=== PATIENT | female | born 1995 | race Caucasian/White ===

== ENCOUNTER 2025-04-22 17:34 | Emergency (ER) | payer MEDICAID, SELFPAY ==
[2025-04-22 17:39] VITALS: BP 147/81; PULSE 89; RESP 18; TEMP 36.8; O2SAT 98
--- NOTE | 2025-04-22 17:44 | USR_ITS ---
PROCEDURE INFORMATION: Exam: US Duplex Artery or Vein of the Abdominal and/or Reproductive Organs, Limited Ovaries Exam date and time: 04/22/2025 6:01 PM Age: 29 years old Clinical indication: Lmp or gestational age (in weeks): 03/06/2025; Other: Bleeding and cramping; Prior surgery; Surgery date: 6+ months; Surgery type: Tubal removed in 2023. PT unsure what side; Additional info: Vaginal bleeding, early . Pain. TECHNIQUE: Imaging protocol: Real-time duplex ultrasound scan of the arterial or venous flow with chavira scale, color Doppler flow and spectral waveform analysis with image documentation. Limited duplex exam focused on the ovaries. Duplex exam was performed to evaluate for torsion and other vascular conditions. COMPARISON: No relevant prior studies available. FINDINGS: Right ovary/adnexa: Normal arterial or venous Doppler waveforms in the ovary. No ovarian torsion. Left ovary/adnexa: Normal arterial or venous Doppler waveforms in the ovary. No ovarian torsion. PROCEDURE INFORMATION: Exam: US First Trimester, Transabdominal and US , Transvaginal Exam date and time: 04/22/2025 6:01 PM Age: 29 years old Clinical indication: Lmp or gestational age (in weeks): 03/06/2025; Other: Bleeding and cramping; Prior surgery; Surgery date: 6+ months; Surgery type: Tubal removed in 2023. PT unsure what side; Additional info: Vaginal bleeding, early . Pain. LABS AND CLINICAL REPORTS: Last menstrual period start date: 03/06/2025 TECHNIQUE: Imaging protocol: Real-time transabdominal obstetrical ultrasound of the maternal pelvis and a first trimester , less than 14 weeks 0 days, with image documentation. Transvaginal imaging was used for better evaluation of the fetus, adnexa, and/or cervix. COMPARISON: No relevant prior studies available. FINDINGS: GESTATION: Gestation: No intrauterine identified. Embryo/ cardiac activity (BPM): No intrauterine . Extra-embryonic membranes/Placenta: No intrauterine . Amniotic/Chorionic fluid: No intrauterine . BIOMETRY: Gestational age (AUA): No intrauterine . MATERNAL: Uterus: The uterus is normal and measures 4.2 x 4.4 x 8.5 cm. No uterine masses are identified. The endometrium is within normal thickness measuring 1 cm. Cervix: Unremarkable. Endocervical canal is closed. Right ovary/adnexa: The right ovary is normal and measures 1.8 x 1.5 x 2.1 cm. Normal arterial and venous waveforms are present. No adnexal masses are identified.. Left ovary/adnexa: Hypervascular structure in the left adnexa with small central area of decreased echogenicity likely represents a left ovary with a corpus luteal cyst though appears mildly enlarged measuring 4.5 x 2.0 x 4.2 cm. Normal arterial and venous waveforms are present. No adnexal masses are seen. Intraperitoneal space: No pelvic free fluid is identified. US/US OB <=14 wk fetus w transvag IMPRESSION: Normal duplex of the ovaries. No evidence of ovarian torsion. IMPRESSION: 1. No intrauterine . Differential diagnosis includes early intrauterine , early ectopic , and missed . 2. 4.5 cm hypervascular structure in the left adnexa with central decreased echogenicity likely represents left ovary with corpus luteal cyst. An ectopic could theoretically have this appearance. Recommend correlation with beta HCG, close clinical follow-up, and follow-up pelvic ultrasound if indicated.
--- NOTE | 2025-04-22 18:17 | W.ED.PREGNAN ---
HPI - General: Chief complaint: OB/Uterine Contractions Stated complaint: 7 Weeks Preg Cramping brown/red discharge Time Seen by Provider: 04/22/25 17:43 History of Present Illness: 29-year-old female who reports a history of a previous tubal with a tubal removal at the time who presents emergency room approximately 7 weeks with concern for bleeding. She has had some mild cramping and some pain in her right back. No nausea or vomiting. She is passed no tissues. Related Data Previous Rx's ?Medication ?Instructions ?Recorded cephalexin 500 mg tablet 500 mg PO TID 7 days #21 tabs 04/22/25 Allergies Allergy/AdvReac Type Severity Reaction Status Date / Time No Known Allergies Allergy Verified 04/22/25 17:43 Review of Systems Narrative: Constitutional symptoms: Negative except as documented in HPI. Skin symptoms: Negative except as documented in HPI. Eye symptoms: Negative except as documented in HPI. ENMT symptoms: Negative except as documented in HPI. Respiratory symptoms: Negative except as documented in HPI. Cardiovascular symptoms: Negative except as documented in HPI. Gastrointestinal symptoms: Negative except as documented in HPI. Genitourinary symptoms: Negative except as documented in HPI. Musculoskeletal symptoms: Negative except as documented in HPI. Neurologic symptoms: Negative except as documented in HPI. Psychiatric symptoms: Negative except as documented in HPI. Endocrine symptoms: Negative except as documented in HPI. Physical Exam Narrative: EXAM NARRATIVE: General: Alert, no acute distress. Skin: Warm, dry. Head: Normocephalic, atraumatic. Neck: Supple, trachea midline. Eye: Extraocular movements are intact. Ears, nose, mouth and throat: mucosa moist. Cardiovascular: Regular, Normal peripheral perfusion. Respiratory: Lungs are clear to auscultation, respirations are non-labored, breath sounds are equal, Symmetrical chest wall expansion. Gastrointestinal: Soft, Nontender, Non distended Musculoskeletal: Normal ROM, no deformity. Neurological: Alert and oriented, No focal neurological deficit observed. Psychiatric: Cooperative, appropriate mood & affect. Course Vital Signs: Vital signs: Vital Signs Temperature 98.3 F 04/22/25 17:39 Pulse Rate 89 04/22/25 17:39 Respiratory Rate 18 04/22/25 17:39 Blood Pressure 147/81 04/22/25 17:39 Pulse Oximetry 98 04/22/25 17:39 Oxygen Delivery Me thod Room Air 04/22/25 17:39 MDM - OB/Uterine Contractions Medical Decision Making Medical decision making: Patient's reason for coming to the emergency room: Vaginal bleeding in early Social determinants: Patient is unemployed. I reviewed the patient's medical record. Patient has had no previous visits to this facility. No records. I reviewed the patient's current home meds Currently takes no medications. Alternate historians: None Differential diagnosis including but not limited to and based on the above HPI, review of systems and physical exam: for patient in early with vaginal bleeding and abdominal pain: Spontaneous , threatened . Urinary tract infection. ectopic . Orders placed to evaluate differential diagnosis based on the above differential, HPI and physical exam Lab Review: Laboratory results were reviewed and interpreted by myself the emergency room physician. No leukocytosis. No anemia. No renal failure. Patient's blood type is O+. No RhoGAM needed. Her quant is positive at 7000. Urinalysis may have an early UTI so antibiotics called in. Ultrasound OB: No intrauterine . Hypervascular structure in the left adnexa. Patient does not have any symptoms there. This was reviewed and interpreted by myself the emergency room physician. I also reviewed the radiology report. Consultation: I spoke with Dr. Titus who is on-call for obstetrics. She feels with a quant of 7000 and she was having an ectopic this would be very symptomatic at this point. No evidence on ultrasound and her exam is fairly benign. She hurts more in her back which may be related to the UTI. She recommends follow-up hCG in the near future. Assessment of risk: - Level of risk moderate - Was hospitalization considered? Yes. Patient does not appear to have an ectopic and so will not require admission Reexamination: Patient remained stable. No increased work of breathing. No altered mental status. No focal motor deficits. Assessment and plan: Miscarriage - Discharged home - Discussed plan with patient. Answered any questions. - Evaluation and treatment of this problem were appropriate in the emergency setting. Lab Data 04/22/25 19:02 04/22/25 19:02 Radiology Impressions Obstetrics Ultrasound 04/22/25 17:44 IMPRESSION: Normal duplex of the ovaries. No evidence of ovarian torsion. IMPRESSION: 1. No intrauterine . Differential diagnosis includes early intrauterine , early ectopic , and missed . 2. 4.5 cm hypervascular structure in the left adnexa with central decreased echogenicity likely represents left ovary with corpus luteal cyst. An ectopic could theoretically have this appearance. Recommend correlation with beta HCG, close clinical follow-up, and follow-up pelvic ultrasound if indicated. Laboratory Results WBC 7.38 10^3/uL (3.29-11.43) 04/22/25 19: RBC 4.70 10^6/uL (3.85-5.65) 04/22/25 19: Hgb 14.30 g/dL (11.27-16.99) 04/22/25: Hct 43.4 % (36-47) 04/22/25: MCV 92.3 fl (85-98) 04/22/25 19: MCH 30.4 pg (27-33) 04/22/25: MCHC 32.9 g/dL (30-55) 04/22/25 19: RDW 12.8 % (12.1-15.1) 04/22/25 19: Plt Count 294 10^3/cmm (157-399) 04/22/25 19: MPV 10.5 fL (7.4-10.4) H 04/22/25 19: Neut % (Auto) 61.1 % 04/22/25: Lymph % (Auto) 31.2 % 04/22/25 19: [place] % (Auto) 7.2 % 04/22/25: Eos % (Auto) 0.1 % 04/22/25: Baso % (Auto) 0.1 % 04/22/25:02 Neut # (Auto) 4.51 10^3/uL (1.8-7.7) 04/22/25: Lymph # (Auto) 2.3 10^3/uL (0.8-4.8) 04/22/25 19:02 [place] # (Auto) 0.5 10^3/uL (0.2-0.9) 04/22/25 19:02 Eos # (Auto) 0.0 10^3/uL (0.0-0.8) 04/22/25 19:02 Baso # (Auto) 0.0 10^3/uL (0.0-0.1) 04/22/25 19:02 Nucleated RBC % (auto) 0 % 04/22/25 19:02 Nucleated RBCs # 0.0 /100WBC 04/22/25 19:02 Sodium 141 mmol/L (136-145) 04/22/25 19:02 Potassium 3.5 mmol/L (3.5-5.1) 04/22/25 19:02 Chloride 104 mmol/L (98-107) 04/22/25 19:02 Carbon Dioxide 24 mmol/L (22-29) 04/22/25 19:02 Anion Gap 16.5 (5-19) 04/22/25 19:02 BUN 10 mg/dL (6-20) 04/22/25 19:02 Creatinine 0.7 mg/dL (0.5-0.9) 04/22/25 19:02 GFR Calculation 98.9 mL/min (90-130) 04/22/25 19:02 Glucose 100 mg/dL (65-115) 04/22/25 19:02 Calculated Osmolality 291 mOsm/kg (285-295) 04/22/25 19:02 Calcium 9.8 mg/dL (8.5-10.5) 04/22/25 19:02 Total Bilirubin 0.5 mg/dL (0.15-1.2) 04/22/25 19:02 AST 16 U/L (0-32) 04/22/25 19:02 ALT 11 U/L (0-33) 04/22/25 19:02 Alkaline Phosphatase 90 U/L (35-105) 04/22/25 19:02 Total Protein 7.8 g/dL (6.6-8.7) 04/22/25 19: Albumin 4.4 g/dL (3.5-5.2) 04/22/25 19:02 Globulin 3.4 g/dL (1.3-4.6) 04/22/25 19:02 Ser , Semi-Qnt 7016.00 mIU/mL 04/22/25 19:02 Urine Color Yellow (Yellow) 04/22/25 18:53 Urine Appearance Cloudy (CLEAR) A 04/22/25 18:53 Urine pH 6.5 (5-7) 04/22/25 18:53 Ur Specific [place] 1.023 (1.005-1.030) 04/22/25 18:53 Urine Protein Trace (Negative) A 04/22/25 18:53 Urine Glucose (UA) Negative (Normal) 04/22/25 18:53 Urine Ketones Trace (Negative) 04/22/25 18:53 Urine Blood 3+ (Negative) A 04/22/25 18:53 Urine Nitrate Negative (Negative) 04/22/25 18:53 Urine Bilirubin Negative (Negative) 04/22/25 18:53 Urine Urobilinogen 1.0 mg/dL (Negative) 04/22/25 18:53 Ur Leukocyte Esterase 1+ (Negative) A 04/22/25 18:53 Urine RBC 6-10 /hpf (0-2) 04/22/25 18:53 Urine WBC 6-10 /hpf (0-5) 04/22/25 18:53 Ur Squamous Epith Cells 6-10 /hpf (0-5) 04/22/25 18:53 Calcium Oxalate Crystal 15-25 /hpf H 04/22/25 18:53 Amorphous Sediment Not Reportable 04/22/25 18:53 Urine Bacteria 1+ /hpf (NONE) H 04/22/25 18:53 Hyaline Casts 0.40 /lpf 04/22/25 18:53 Blood Type O Positive 04/22/25 19:02 Rho(D) Type Rh positive 04/22/25 19:02 All radiology interpretation(s) finalized by discharge Discharge Plan Discharge Patient Disposition: Home Clinical Impression: Miscarriage, Urinary tract infection Condition: Stable Prescriptions: New cephalexin 500 mg tablet 500 mg PO TID 7 Days Qty: 21 0RF Discharge Orders: Discharge ED (Routine); Ordered 04/22/25 Ordered By: Violeta Villavicencio Referrals: Lane Hawkins MD [Physician, BUSINESS ENGLISH INSTRUCTOR] - 1-3 days Referral Note: Please call for follow-up appointment Discharge Diet: Usual diet Discharge Activity: Increase activity as tolerated Patient Instructions: Opioid Safety, Pain Management, Patient Portal & Calista Instructions Activity Restrictions/Additional Instructions: Please return to the emergency room for a repeat beta-hCG if you cannot get in with Dr. Hawkins early next week. If you develop any worsening pain, fevers or other worrisome symptoms seek emergent medical attention Thank you for choosing [facility] for your healthcare needs today. You have been screened and evaluated and felt safe for discharge. Health conditions do change or evolve sometimes and as such it is important that you follow up with your Primary Doctor to be re checked, 3-5 days is a general good time frame for follow up. You are always welcome to return to the ED for re assessment if your symptoms are worsening or you have new concerns Print Language: Maori Coding Level of Care Code ED Business Systems Advisor for Kellie Calhoun
--- NOTE | 2025-04-22 18:19 | PC.NURSE ---
pt taken to US prior to pt collecting urine sample
--- NOTE | 2025-04-22 18:37 | PC.NURSE ---
pt still in US at this time, unable to obtain urine sample at this time
[2025-04-22 19:10] LABS: Glucose Urine UA Negative (Normal); Nitrate Urine Negative (Negative); Specific Gravity, Urine 1.023 (1.005-1.030)
[2025-04-22 19:24] LABS: Hematocrit 43.4 % (36-47); Hemoglobin 14.30 g/dL (11.27-16.99); Mean Corpuscular HGB Conc 32.9 g/dL (30-55); Mean Corpuscular Hemoglobin 30.4 pg (27-33); Mean Corpuscular Volume 92.3 fl (85-98); Nucleated Red Blood Cells % 0 %; Platelet Count 294 10^3/cmm (157-399); Red Blood Count 4.70 10^6/uL (3.85-5.65); White Blood Count 7.38 10^3/uL (3.29-11.43)
[2025-04-22 19:43] LABS: UA Slide Review UA Slide Review Perf
[2025-04-22 19:55] LABS: Alanine Aminotransferase 11 U/L (0-33); Albumin Level 4.4 g/dL (3.5-5.2); Alkaline Phosphatase 90 U/L (35-105); Anion Gap 16.5 (5-19); Aspartate Amino Transferase 16 U/L (0-32); Blood Urea Nitrogen 10 mg/dL (6-20); Calcium 9.8 mg/dL (8.5-10.5); Carbon Dioxide 24 mmol/L (22-29); Chloride 104 mmol/L (98-107); Globulin 3.4 g/dL (1.3-4.6); Glucose 100 mg/dL (65-115); Osmolality Calculated 291 mOsm/kg (285-295); Potassium 3.5 mmol/L (3.5-5.1); Sodium 141 mmol/L (136-145); Total Protein 7.8 g/dL (6.6-8.7)
== END 2025-04-22 20:27 | disposition home or self-care (01) ==
PROVIDERS: Emergency Provider Emergency Medicine
DX: O03.9 Complete or unspecified spontaneous abortion without complication (principal); N39.0 Urinary tract infection, site not specified
CPT/HCPCS: 36415; 76801; 76817; 80053; 81001; 84702; 85025; 86900; 99284

== ENCOUNTER 2025-05-20 12:10 | Emergency (ER) | payer MEDICAID, SELFPAY ==
[2025-05-20 12:11] VITALS: BP 123/105; PULSE 78; RESP 18; TEMP 36.4; O2SAT 98
--- NOTE | 2025-05-20 12:11 | ECG_ITS ---
[facility] Test Date: 2025-05-20 Pat Name: Corrie Duran Department: Room: Gender: Female Merchandise Pickup/Receiving Associate: : 1995 Requested By: Boom Atwood Order Number: [id number] Karina MD: Tawanna Jhaveri M.D. Measurements Intervals [place] Rate: 62 P: -8 IA: 111 QRS: 57 QRSD: 118 T: 34 QT: 398 QTc: 404 Interpretive Statements SINUS RHYTHM WITH SHORT IA INTERVAL WITH OCCASIONAL SUPRAVENTRICULAR PREMATURE COMPLEXES INCOMPLETE RIGHT BUNDLE BRANCH BLOCK [90+ ms QRS DURATION, TERMINAL R IN V1/V2, 40+ ms S IN I/aVL/V4/V5/V6] No previous ECG available for comparison Electronically Signed On 05-22-2025 14:11:16 EXHIBITS CURATOR by Tawanna Jhaveri M.D. [email or web address]
--- NOTE | 2025-05-20 12:11 | XR_ITS ---
WS: [id number] XR chest 1V portable [id number] REASON FOR EXAM: dyspnea/cough FINDINGS: The heart and mediastinum are within normal limits. Calcified granulomatous disease bilaterally. No acute pulmonary parenchymal or pleural abnormality. Mild levoscoliosis of the lower and mid thoracic spine. XR/XR chest 1V portable [id number] IMPRESSION: No acute chest abnormality.
--- NOTE | 2025-05-20 12:25 | W.ED.GENADLT ---
HPI - General Adult General: Chief complaint: General Medical Stated complaint: detox Time Seen by Provider: 05/20/25 12:10 History of Present Illness: 29-year-old female presents emergency room self admits to having used methamphetamines and fentanyl. She appears to be under the influence methamphetamine at this time. Apparently she went to her flight communications officer for routine check-in had been using methamphetamine tested positive. She arrives here by ambulance. chairman & chief executive officer had told EMS crew that brought her in and that she was suicidal and she made suicidal statement patient adamantly denies states she just wants to be admitted for detox and rehab from substance abuse. Associated symptoms: Deny chest pain, dyspnea or rash Related Data Home Medications ?Medication ?Instructions ?Recorded ?Confirmed No Known Home Medications 05/20/25 05/20/25 Allergies Allergy/AdvReac Type Severity Reaction Status Date / Time No Known Allergies Allergy Verified 04/22/25 17:43 Review of Systems Const: Denies: fever(s) or chills Card: Denies: chest pain Resp: Denies: dyspnea GI: Denies: abdominal pain : Denies: dysuria, urinary frequency or urinary urgency Musc: Denies: neck pain or back pain Skin/Breast: Denies: rash Physical Exam Const: GENERAL APPEARANCE: cooperative ORIENTATION/CONSCIOUSNESS: Yes awake, Yes oriented to person, Yes oriented to place and Yes oriented to time HENMT: COMMON NORMALS: normocephalic, atraumatic and hearing grossly normal bilaterally HEAD & SCALP: normocephalic and atraumatic Resp: COMMON NORMALS: normal respiratory effort, No retractions, No use of accessory muscles and clear to auscultation bilaterally AUSCULTATION: clear to auscultation bilaterally Cardio: COMMON NORMALS: regular rate, regular rhythm and No murmurs present (Cardio) RATE: regular rate RHYTHM: regular rhythm GI: COMMON NORMALS: Soft to palpation and No hepatosplenomegaly present AUSCULTATION: Yes normoactive bowel sounds PALPATION: Yes Soft to palpation, No Tenderness to palpation present (GI), No Guarding due to palpation present (GI) and Yes No hepatosplenomegaly present Extremity: COMMON NORMALS: normal to inspection, capillary refill normal, no clubbing, cyanosis or edema, no calf tenderness and no pedal edema Neuro: SENSORIUM/ORIENTATION: Yes oriented to person, Yes oriented to place and Yes oriented to time Skin: COMMON NORMALS: no rashes or lesions noted GENERAL SKIN EXAM: no rashes or lesions noted Course Vital Signs: Vital signs: Vital Signs Temperature 97.6 F 05/20/25 12:11 Pulse Rate 64 05/20/25 14:30 Respiratory Rate 18 05/20/25 12:11 Blood Pressure 119/76 05/20/25 14:30 Pulse Oximetry 100 05/20/25 14:30 Oxygen Delivery Me thod Room Air 05/20/25 14:30 MDM - General Adult Medical Decision Making Medical decision making Social determinants: Poor social support history of substance abuse. Patient is on parole and is homeless. I reviewed the patient's medical record. I reviewed the patient's current home meds Alternate historians: EMS, flight communications officer Differential diagnosis: Polysubstance abuse versus psychosis Lab Review: Labs reviewed no acute findings Imaging: Chest x-ray negative Assessment of risk: Level of risk: Moderate Hospitalization considerations: Considered discussed with on-call psychiatry they did not recommend admission Reexamination: Patient has no evidence of acute psychosis at this time. She is moderately agitated due to recent Use of methamphetamines. Patient continues to deny suicidal or homicidal ideation Assessment and plan: Patient adamantly denies suicidal or homicidal ideation. EMS reported they were told she had made a suicidal statement to her flight communications officer but they did not witness it and she denied it to them. We contacted the parole officers. They declined to endorse any expressions of suicidal ideation. Patient is not acutely psychotic at this time. She is very concerned about where she will go. Patient is currently homeless she was staying with some friends because of her drug use they do not want her there anymore she is concerned about having to go back to skilled nursing because she violated her parole. At this point she does not have any indication for acute hospital admission I discussed with on-call psychiatry they did not feel that admission would be beneficial. Will discharge patient from the emergency room and direct her to crisis stabilization to help her access community resources. Medical Records I reviewed the patient's medical records. Lab Data I reviewed the patient's lab results. 05/20/25 12:25 05/20/25 12:25 Radiology Impressions Chest X-Ray 05/20/25 12:11 IMPRESSION: No acute chest abnormality. Laboratory Results WBC 7.07 10^3/uL (3.29-11.43) 05/20/25 12: RBC 4.72 10^6/uL (3.85-5.65) 05/20/25 12: Hgb 14.30 g/dL (11.27-16.99) 05/20/25 12: Hct 43.1 % (36-47) 05/20/25 12: MCV 91.3 fl (85-98) 05/20/25 12: MCH 30.3 pg (27-33) 05/20/25 12: MCHC 33.2 g/dL (30-55) 05/20/25 12: RDW 12.0 % (12.1-15.1) L 05/20/25 12: Plt Count 259 10^3/cmm (157-399) 05/20/25 12: MPV 11.0 fL (7.4-10.4) H 05/20/25 12: Neut % (Auto) 71.8 % 05/20/25 12: Lymph % (Auto) 21.4 % 05/20/25 12: [place] % (Auto) 6.4 % 05/20/25 12: Eos % (Auto) 0.0 % 05/20/25 12: Baso % (Auto) 0.1 % 05/20/25 12: Neut # (Auto) 5.08 10^3/uL (1.8-7.7) 05/20/25 12: Lymph # (Auto) 1.5 10^3/uL (0.8-4.8) 05/20/25 12:25 [place] # (Auto) 0.5 10^3/uL (0.2-0.9) 05/20/25 12: Eos # (Auto) 0.0 10^3/uL (0.0-0.8) 05/20/25 12: Baso # (Auto) 0.0 10^3/uL (0.0-0.1) 05/20/25 12: Nucleated RBC % (auto) 0 % 05/20/25 12: Nucleated RBCs # 0.0 /100WBC 05/20/25 12:25 Sodium 142 mmol/L (136-145) 05/20/25 12:25 Potassium 3.5 mmol/L (3.5-5.1) 05/20/25 12:25 Chloride 103 mmol/L (98-107) 05/20/25 12:25 Carbon Dioxide 25 mmol/L (22-29) 05/20/25 12:25 Anion Gap 17.5 (5-19) 05/20/25 12:25 BUN 12 mg/dL (6-20) 05/20/25 12:25 Creatinine 0.9 mg/dL (0.5-0.9) 05/20/25 12:25 GFR Calculation 74.0 mL/min (90-130) L 05/20/25 12:25 Glucose 85 mg/dL (65-115) 05/20/25 12:25 Calculated Osmolality 293 mOsm/kg (285-295) 05/20/25 12:25 Calcium 9.9 mg/dL (8.5-10.5) 05/20/25 12:25 Total Bilirubin 1.0 mg/dL (0.15-1.2) 05/20/25 12:25 AST 41 U/L (0-32) H 05/20/25 12:25 ALT 27 U/L (0-33) 05/20/25 12:25 Alkaline Phosphatase 108 U/L (35-105) H 05/20/25 12:25 Total Protein 8.0 g/dL (6.6-8.7) 05/20/25 12:25 Albumin 4.7 g/dL (3.5-5.2) 05/20/25 12:25 Globulin 3.3 g/dL (1.3-4.6) 05/20/25 12:25 HCG, Qual Positive (Negative) H 05/20/25 12:25 Ser , Semi-Qnt 320.20 mIU/mL 05/20/25 12:25 Salicylates < 0.3 mg/dL (3-10) L 05/20/25 12:25 Acetaminophen < 5.0 ug/mL (10-30) L 05/20/25 12:25 Ethyl Alcohol < 10 mg/dL (0-10) 05/20/25 12:25 All radiology interpretation(s) finalized by discharge EKG Data EKG 1: I personally reviewed and interpreted this EKG as follows: Interpretation: EKG 05/20/2025 1315 sinus rhythm rate of 62. [place] 111 QTc [address] changes noted. No previous EKGs available for comparison Computer generated interpretation: Chest X-Ray 05/20/25 12:11 IMPRESSION: No acute chest abnormality. Discharge Plan Discharge Patient Disposition: Home Clinical Impression: Polysubstance abuse Condition: Stable Prescriptions: No Action No Known Home Medications Discharge Orders: Discharge ED (Routine); Ordered 05/20/25 Ordered By: Boom Sethi Discharge Diet: Usual diet Discharge Activity: Resume usual activity Patient Instructions: Opioid Safety, Pain Management, Patient Portal & Calista Instructions Activity Restrictions/Additional Instructions: Thank you for choosing [facility] for your healthcare needs today. It is very important that you follow up as instructed or that you return to the Emergency Department should you have concerns or if your condition changes or worsens in any way. Emergency department visits are focused on emergent conditions, in some cases you may require further evaluation on an outpatient basis. You were seen in the emergency room with concerns about substance abuse. You had related that she had recently used methamphetamine and fentanyl. Discussed your case with psychiatry does not feel that an inpatient admission is warranted at this time. Recommends a referral to outpatient therapy such as [facility] the phone number for [facility] is [phone]. (Please note that included in your discharge packet is information concerning opioid safety and pain management. This information is given to all patients were discharged from the ER regardless of their discharge diagnosis or the medicines they usually take or are prescribed.) Print Language: German Coding Level of Care Code ED Hybrid Powertrain Development Engineer for Kellie Calhoun
[2025-05-20 12:34] LABS: Hematocrit 43.1 % (36-47); Hemoglobin 14.30 g/dL (11.27-16.99); Mean Corpuscular HGB Conc 33.2 g/dL (30-55); Mean Corpuscular Hemoglobin 30.3 pg (27-33); Mean Corpuscular Volume 91.3 fl (85-98); Nucleated Red Blood Cells % 0 %; Platelet Count 259 10^3/cmm (157-399); Red Blood Count 4.72 10^6/uL (3.85-5.65); White Blood Count 7.07 10^3/uL (3.29-11.43)
[2025-05-20 12:49] LABS: HCG, Serum Qual Positive (Negative)
[2025-05-20 12:53] LABS: Acetaminophen < 5.0 ug/mL (10-30); Alanine Aminotransferase 27 U/L (0-33); Albumin Level 4.7 g/dL (3.5-5.2); Alcohol Level < 10 mg/dL (0-10); Alkaline Phosphatase 108 U/L (35-105); Anion Gap 17.5 (5-19); Aspartate Amino Transferase 41 U/L (0-32); Blood Urea Nitrogen 12 mg/dL (6-20); Calcium 9.9 mg/dL (8.5-10.5); Carbon Dioxide 25 mmol/L (22-29); Chloride 103 mmol/L (98-107); Globulin 3.3 g/dL (1.3-4.6); Glucose 85 mg/dL (65-115); Osmolality Calculated 293 mOsm/kg (285-295); Potassium 3.5 mmol/L (3.5-5.1); Salicylate < 0.3 mg/dL (3-10); Sodium 142 mmol/L (136-145); Total Protein 8.0 g/dL (6.6-8.7)
[2025-05-20 14:30] VITALS: BP 119/76; PULSE 64; O2SAT 100
== END 2025-05-20 16:09 | disposition home or self-care (01) ==
LOC: ER 13:11 → NP 15:23
PROVIDERS: Emergency Provider Family Medicine
DX: F19.10 Other psychoactive substance abuse, uncomplicated (principal)
CPT/HCPCS: 36415; 71045; 80053; 80307; 84702; 84703; 85025; 93005; 99285